=== PATIENT | female | born 1945 | race Caucasian/White ===

== ENCOUNTER 2020-06-11 15:00 | Outpatient (CLI) | payer MEDICARE ==
--- NOTE | 2020-06-11 16:47 | MRI ---
MRI RIGHT KNEE WITHOUT CONTRAST: 06/11/20 HISTORY: Knee pain. COMPARISON: Radiograph 06/09/20. FINDINGS: MEDIAL MENISCUS: There is a high grade radial tear posterior horn medial meniscus extending to the root, a radial obli que tear. There is high grade mucinous degeneration throughout the both and posterior horn medial men iscus with gutter extrusion in a superior articular surface displaced flap tear. 3 mm medial gutter e xtrusion of the medial meniscus. LATERAL MENISCUS: Horizontal cleavage tear lateral meniscal body with high grade intrameniscal degeneration of the body and anterior horn. Mild mucinous degeneration of the anterior cruciate ligament. Posterior cruciate ligament is intact. MCL and LCL is intact. EXTENSOR MECHANISM: The quadriceps tendon, patella and patellar tendon are intact. 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 N o full thickness cartilage defect. Medial compartment: 50-60% chondral loss throughout the weightbearing surface medial femoral condyle with a relatively hi gh grade chondral defect central weightbearing surface measuring 8 mm in transverse AP dimension of 1 .6 cm of the central weightbearing surface of the medial femoral condyle. Lateral compartment: Mild chondral fraying. No high grade defect. MUSCLES: There is abnormal edema within the vastus intermedius and lateralis muscles with partial tear of the vastus lateralis myotendinous junction, grade 2 partial tear. Grade 1 injury of the vastus medialis. The medial head gastrocnemius has a grade 2 partial tear from the posterior femoral metaphysis. Leaki ng popliteal cyst is present. Some mild edema within the muscle belly throughout the medial head ade rocnemius. The iliotibial track is intact. SOFT TISSUES: Very large joint effusion with debris. There is a body within the suprapatellar recess measuring 3 mm . BONES: Small volume accentuation of fluid within the root of the posterior horn medial meniscus. No acute fr acture or malalignment. IMPRESSION: 1. High grade radial oblique tear posterior horn medial meniscus extends to the root which is ma cerated and scarred. There is also associated extensive intrameniscal degeneration of the body and po sterior horn of the medial meniscus with superior articular surface flap tear and 3 to 4 mm gutter ex trusion with loss of hoop stress. 2. Horizontal cleavage tear of the lateral meniscal body with moderate intrameniscal degeneratio n. 3. Very large joint effusion containing debris as well as a 3 mm free body in the suprapatellar recess. 4. Grade 2 partial tear of the medial head gastrocnemius and posterior femoral metaphysis. 5. Grade 2 partial tear of the vastus lateralis myotendinous junction as well as grade 1 injury of the vastus medialis. 6. Small leaking popliteal cyst with caudal dehiscence. 7. Moderate pes anserine bursitis. 8. Predominantly grade 2 chondromalacia of the medial patellar facet with 75% chondral loss thro ughout the facet. 9. Grade 2-3 chondromalacia throughout the medial compartment with a high grade near full thickn ess defect central weightbearing surface of the medial femoral condyle measuring 8 mm in transverse with a craniocaudal dimension of 1.7 cm. No displaced osteochondral flake is appreciated. 10. High grade tendinosis of the direct head semimembranosus tendon. 11. Intact ACL and PCL. POS: [facility]
== END 2020-06-11 15:01 | disposition home or self-care (01) ==
LOC: SCSMRI 15:00
PROVIDERS: ATTEND Orthopaedic Surgery
DX: M25.561 Pain in right knee (principal); S83.241A Other tear of medial meniscus, current injury, right knee, initial encounter; S83.281A Other tear of lateral meniscus, current injury, right knee, initial encounter; M25.461 Effusion, right knee; M71.21 Synovial cyst of popliteal space [Baker], right knee; M71.561 Other bursitis, not elsewhere classified, right knee; M22.41 Chondromalacia patellae, right knee; M77.9 Enthesopathy, unspecified